=== PATIENT | male | born 1995 | race Caucasian/White ===

== ENCOUNTER 2023-05-17 19:38 | Emergency (ER) | payer OTHER, SELFPAY ==
--- NOTE | 2023-05-17 19:37 | ECG_ITS ---
APPROVED REPORT Exam: Resting ECG HR:92 bpm ECG Measurements Heart Rate 92 AXES AR 158 P 72 QRSd 97 QRS 89 QT 320 T 42 QTc 370 Conclusion SINUS RHYTHM NORMAL ECG UNCONFIRMED REPORT Electronically signed by : Levy Abdul MD 05/19/2023 21:19:21
[2023-05-17 19:38] VITALS: BP 153/104; PULSE 100; RESP 19; TEMP 36.8; O2SAT 99; BMI 31.2
[2023-05-17 19:42] VITALS: BMI 31.2
--- NOTE | 2023-05-17 19:47 | XR_ITS ---
PROCEDURE INFORMATION: Exam: XR Chest Exam date and time: 05/17/2023 8:18 PM Age: 28 years old Clinical indication: Pain; Chest pressure; Additional info: Chest pain TECHNIQUE: Imaging protocol: Radiologic exam of the chest. Views: 2 views. COMPARISON: No relevant prior studies available. FINDINGS: Lungs: Unremarkable. No consolidation. Pleural spaces: Unremarkable. No pleural effusion. No pneumothorax. Heart/Mediastinum: Unremarkable. No cardiomegaly. Bones/joints: Unremarkable. IMPRESSION: No acute findings.
[2023-05-17 19:58] LABS: Basophils # 0.1 K/mm3 (0-0.2); Basophils % 0.6 % (0.1-2.0); Eosinophils # 0.2 K/mm3 (0.0-0.4); Eosinophils % 2.3 % (0.1-12.0); Hematocrit 51.5 % (42.0-52.0); Hemoglobin 17.5 g/dL (14.1-18.0); Lymphocytes # 1.8 K/mm3 (0.7-4.5); Lymphocytes % 23.3 % (10-50); Mean Corpuscular HGB Conc 33.9 g/dL (31.8-35.4); Mean Corpuscular Hemoglobin 29.5 pg (27.0-31.2); Mean Corpuscular Volume 86.9 fl (80-94); Mean Platelet Volume 7.4 fl (7.4-10.4); Monocytes # 0.3 K/mm3 (0.1-1.0); Monocytes % 3.9 % (1.7-9.3); Neutrophils # 5.5 K/mm3 (1.8-7.8); Neutrophils % 69.9 % (37.0-80.0); Platelet Count 362 K/mm3 (142-424); Red Blood Count 5.93 M/mm3 (4.60-6.20); Red Cell Distribution Width 13.6 % (11.5-17.5); White Blood Count 7.9 K/mm3 (4.8-10.8)
[2023-05-17 20:02] LABS: Alanine Aminotransferase 40 U/L (12-78); Albumin Level 5.4 g/dl (3.5-5.0); Alkaline Phosphatase 56 U/L (38-126); Anion Gap 17.9 mEq/L (5-15); Aspartate Amino Transferase 45 U/L (17-59); Bilirubin,Indirect 0.9 mg/dL (0.0-0.9); Bilirubin,Total 0.9 mg/dl (0.2-1.3); Bilirubin,Unconjugated 0.9 mg/dL (0.0-1.1); Blood Urea Nitrogen 14 mg/dl (9-20); Calcium 9.7 mg/dl (8.4-10.2); Carbon Dioxide 27 mmol/L (22.0-30.0); Chloride 100 mmol/L (98-107); Creatinine Clearance Estimated 176 mL/min (50-200); Estimated Glomerular Filt Rate 89 ml/min (>60); GFR (African American) 108 ML/MIN (>60); Glucose 101 mg/dl (74-100); Potassium 3.9 mmoL/L (3.5-5.1); Sodium 141 mmol/L (136-145); Total Protein,Serum 9.6 g/dl (6.3-8.2)
[2023-05-17 20:07] LABS: C-Reactive Protein 0.5 mg/L (0-4)
[2023-05-17 20:21] LABS: Procalcitonin 0.055 ng/mL (0.0-2.0)
[2023-05-17 20:23] LABS: Troponin I < 0.01 ng/ml (0.00-0.034)
[2023-05-17 20:30] LABS: Microscopic, Urine URINE MICROSCOPIC (MICROSCOPIC)
--- NOTE | 2023-05-17 20:31 | PC.NURSE ---
Pt returned from RAD
[2023-05-17 20:36] LABS: Appearance,Urine CLEAR (Clear); Bilirubin,Urine Negative (Negative); Blood, Urine Negative (Negative); Color,Urine YELLOW (Yellow); Glucose,Urine (UA) Negative (Negative); Ketones,Urine Negative (Negative); Leukocyte Esterase,Urine Negative (Negative); Nitrate,Urine Negative (Negative); Protein,Urine Negative (Negative); Specific Gravity, Urine 1.025 (1.005-1.030); Urobilinogen,Urine 0.2 EU/dl (0.2)
[2023-05-17 20:58] LABS: Squamous Epithelial Cell,Urine Occasional #/hpf (0-5)
[2023-05-17 21:01] VITALS: BP 114/73; PULSE 77; RESP 22; O2SAT 95
[2023-05-17 21:15] LABS: Erythrocyte Sedimentation Rate 2 mm/hr (0-15)
--- NOTE | 2023-05-17 21:22 | PC.NURSE ---
Rounded on pt. Pt advised pain comes and goes. RN advised.
--- NOTE | 2023-05-17 21:24 | PC.NURSE ---
Dr. Gomez at
[2023-05-17 21:26] LABS: T4 (Thyroxine) 9.9 ug/dl (5.53-11.0)
[2023-05-17 21:30] VITALS: BP 134/86; PULSE 93; RESP 11; O2SAT 98
--- NOTE | 2023-05-17 21:33 | PC.NURSE ---
Called [facility] to check if we have any holter monitors. They advised we do not.
--- NOTE | 2023-05-17 21:36 | [facility].EDCP ---
Discharge Plan Disposition Chief Complaint: Chest Pain Referrals Follow up/Referrals: Aline Rios, [employer] [facility] [Primary Care Provider] - See instructions Clinical Impressions Clinical Impression: Atypical chest pain Instructions Patient Instructions: DI for Atypical Chest Pain Discharge ED Provider: Patricia (ED)Carlos Manuel Chest Pain HPI General Chief Complaint: Chest Pain Stated Complaint: chest pain Time Seen by Provider: 05/17/23 21:00 Mode of Arrival: Family Vehicle Source of Information: Patient and Medical Record Limitations: No Limitations Description of Symptoms (Recalled from ER Triage Doc. by RN): Pt c/o midsternal chest pain that radiates to his left chest wall and L axillary line. He has been having this pain on/off for about a week and his PCP sent in Hydroxizine and protonix to help his pain. He golfed today and felt flutterings and chest pounding. He went home & took his medications and felt drowsy but the pain lingered. Then while at the fair later today, he began to have stronger pain and History of Present Illness HPI narrative: pt with episodes of palpitations and and assoc chest pain w/o syncope - MD complaint: chest pain Onset (ago): hour(s) Duration: intermittent Activity at onset: during rest Pain location: left chest Severity: similar to previous episodes Quality: sharp Risk Factors for CAD: Family Hx of CAD Treatments prior to or on arrival for Cardiac Chest Pain: none MARY Score for Non-Stemi Age of Patient: <30 years old Heart Rate: 70-89 bpm Systolic Blood Pressure: 120-139 mmhg Serum Creatinine: 0.80-1.19 mg/dl CHF [place] Class: I-No CHF Other Risk Factors: None Non-Stemi Risk Score: 50 Risk Stratification: 1-108 = Low Risk Related Data Allergies Allergy/AdvReac Type Severity Reaction Status Date / Time No Known Allergies Allergy Verified 05/17/23 19:43 [facility] Disclaimer: The information contained in this section may have been updated after the patient was seen, as this information can be updated by other users. Social History Smoking Status: Never smoker alcohol intake: never current occupational status: employed Travel in the last 8 weeks: None ROS Obtained: Yes All systems reviewed & no additional complaints except as documented Physical Exam General General appearance: alert Head Head exam: normocephalic Eye Eye exam: Present PERRL and EOMI; Absent scleral icterus ENT ENT exam: Present mucous membranes moist Neck Neck exam: Present trachea midline Respiratory Respiratory exam: Present normal lung sounds bilaterally; Absent respiratory distress Cardiovascular Cardiovascular exam: Present regular rate Abdominal Exam Abdominal exam: Present soft Extremities Exam Extremities exam: Present full ROM Neurological Exam Neurological exam: Present alert, oriented X3 and CN II-XII intact; Absent motor sensory deficit Psychiatric Psychiatric exam: Present normal affect Skin Skin exam: Absent rash Medical Decision Making Medical Records Medical records reviewed: Yes I reviewed the patient's medical records. Mervin Inquiry Pt receiving controlled substance: No Vital Signs: 05/17/23 19:38 05/17/23 21:01 Temperature 98.2 F Temperature Source Oral Pulse Rate 77 Pulse Rate [Right] 100 H Respiratory Rate 19 22 Blood Pressure 114/73 Blood Pressure [Right Arm] 153/104 H Blood Pressure Mean [Right Arm] 120 Blood Pressure Source [Right Arm] Automatic Cuff 02 Sat by Pulse Oximetry 99 95 Oxygen Delivery Method Room Air Room Air Lab Data Lab results reviewed: Yes I reviewed the patient's lab results. Lab Results 05/17/23 19:46: WBC 7.9, RBC 5.93, Hgb 17.5, Hct 51.5, MCV 86.9, MCH 29.5, MCHC 33.9, RDW 13.6, Plt Count 362, MPV 7.4, Neut % (Auto) 69.9, Lymph % (Auto) 23.3, [place] % (Auto) 3.9, Eos % (Auto) 2.3, Baso % (Auto) 0.6, Neut # (Auto) 5.5, Lymph # (Auto) 1.8, [place] # (Auto) 0.3, Eos # (Auto) 0.2, Baso # (Auto) 0.1, ESR 2, Sodium 141,
[2023-05-17 21:40] LABS: Thyroid Stimulating Hormone 3.63 uIU/mL (0.465-4.68)
--- NOTE | 2023-05-17 21:48 | PC.NURSE ---
Dr. Gomez s/w Dr. Jenkins, stated to see cardiology clinic tomorrow at 1030a. s/w pt about this appt.
[2023-05-17 22:00] VITALS: BP 122/84; PULSE 81; O2SAT 97
[2023-05-17 22:11] VITALS: BP 122/84; PULSE 104; PULSE 75; RESP 17; TEMP 36.7; O2SAT 98
== END 2023-05-17 22:23 | disposition home or self-care (01) ==
PROVIDERS: Emergency Provider Emergency Medicine; PCP Nurse Practitioner
DX: R07.89 Other chest pain (principal)
CPT/HCPCS: 71046; 80048; 80076; 81001; 84145; 84436; 84443; 84484; 85025; 85651; 86140; 93005; 96360; 99285

== ENCOUNTER 2023-05-25 10:01 | Outpatient (CLI) | payer OTHER, SELFPAY ==
[2023-05-25 11:00] VITALS: BP 120/73; PULSE 54; RESP 18; O2SAT 98
[2023-05-25 11:01] VITALS: BMI 64.4
[2023-05-25 11:20] VITALS: BP 128/75; PULSE 55; RESP 18; O2SAT 98
== END 2023-05-25 11:30 | disposition home or self-care (01) ==
LOC: RAD 10:01
PROVIDERS: PCP Nurse Practitioner; Visit Provider Internal Medicine
DX: R07.89 Other chest pain (principal); R94.31 Abnormal electrocardiogram [ECG] [EKG]; Z86.79 Personal history of other diseases of the circulatory system
CPT/HCPCS: 75574; Q9967

== ENCOUNTER → 2023-05-31 07:49 | Outpatient (CLI) | payer OTHER, SELFPAY | LOC: RT 07:50 | PROVIDERS: PCP Nurse Practitioner; Visit Provider Internal Medicine | DX: R07.89 Other chest pain (principal); R94.31 Abnormal electrocardiogram [ECG] [EKG]; Z86.79 Personal history of other diseases of the circulatory system | CPT/HCPCS: 93306 ==